=== PATIENT | female | born 1950 | race Caucasian/White ===

== ENCOUNTER 2018-09-16 07:00 | Day surgery (SDC) | payer BC, MEDICARE ==
[~2018-09-16] VITALS: Ht 165.1 cm; Wt 82.5 kg
[~2018-09-16 07:00] MED LIST: ALLEREST; ASPIRIN EC81 MG PO; BENADRYL25 MG PO; IBUPROFEN200 MG PO; LATANOPROST2.5 ML OPTH; LEVOTHYROXINE50 MCG PO; LISINOPRIL-HCT1 EAC2 PO; NORCO 7.5-3251 EACH PO; ULTRAM50 MG PO; ZITHROMAX250 MG PO
--- NOTE | 2018-09-16 10:26 | NUR ---
[id number]: FRAME MAKER PROVIDES ORDERS FOR LABETALOL, SEE EMAR. FREQUENT MANUAL BP TAKEN. PT UNABLE TO KEEP LEFT ARM STILL DUE TO THE PRESSURE OF BP CUFF CAUSING PAIN. PT GROANS WITH WITH EACH BP. PT BOLUSED 500 MLS LR PER FRAME MAKER. WILL CONTINUE TO MONITOR.
--- NOTE | 2018-09-16 14:31 | NUR ---
09/16/18 1431 Sheets,[place] 1423 PT ARRIVED TO PACU ON 6L VIA MASK WITH ORAL AIRWAY IN PLACE. RESP EVEN AND UNLABORED. 1429 PT MOVING ARMS, EYES REMAIN CLOSED AND PT UNABLE TO FOLLOW COMMANDS. ORAL AIRWAY REMAINS IN PLACE.
--- NOTE | 2018-09-16 15:57 | NUR ---
PT ARRIVES TO DS RM 3 FROM PACU DROWSY WITH EYES CLOSED. PT RESP EVEN AND UNLABORED ON RA. PULSE OXIMETER LEFT IN PLACE, PT REMINDED TO TAKE DEEP BREATHS TO KEEP O2 ABOVE 94%. PT FOLLOWS VERBAL COMMANDS WELL. PT DENIES PAIN OR NAUSEA. PT SPOUSE IN ON ARRIVAL. 1550: PT STATES SHE HAS TO VOID. BED MARTIN PROVIDED AND PT ABLE TO VOID QS. PT SPOUSE ASKS IF PT HAS ANY MEDICATIONS THAT NEED TO BE FILLED AT PHARMACY. SPOUSE PROVIDED SCRIPT AND EXITS PT ROOM TO FILL. SCD'S IN PLACE. CALL LIGHT WITHIN REACH.
--- NOTE | 2018-09-16 16:58 | NUR ---
PT SLEEPING ON ARRIVAL TO FOR ASSESSMENT. PT EASILY AROUSES TO VERBAL STIMULATION. PT WAKES UP AND STATES SHE FEELS THE URGE TO VOID. PT CHANGES POSITIONS SLOWLY AND SITS AT EDGE OF BED. PT DENIES ANY DIZZINESS OR NAUSEA WITH POSITION CHANGE AND STANDS UP. PT AMBULATES WITH RN ASSIST TO BATHROOM. PT STEADY OF FEET. PT ABLE TO VOID 200 MLS PINK URINE. PT CONT TO DENY ANY PAIN OR NAUSEA AT THIS TIME. 1700: PT BACK IN AND PROVIDED WATER AND PUDDING.
[2018-09-16] MEDS ORDERED: NORCO 5-325 TA1 EACH PO (16:59)
--- NOTE | 2018-09-16 17:36 | NUR ---
DC INSTRUCTIONS GIVEN AND PATIENT VERBALIZES UNDERSTANDING. PATIENT GETTING DRESSED.
--- NOTE | 2018-10-21 09:26 | OR ---
[facility] [address] [place], [place] [address] Signed DATE OF OPERATION: 09/16/2018 SURGEON: Nadine Arias MD PREOPERATIVE DIAGNOSES: Postmenopausal bleeding and endometrial mass and cervical stenosis. POSTOPERATIVE DIAGNOSES: Postmenopausal bleeding and endometrial mass, pending pathology. Cervical stenosis. PROCEDURE: Hysteroscopy, D and C, resection of endometrial mass. ANESTHESIA: General ET. ESTIMATED BLOOD LOSS: 25 mL. DRAINS: None. INDICATIONS AND FINDINGS: The patient is a 68-year-old female, 2, para 2, who has been having abnormal bleeding since February of this past year. She had an ultrasound done as well as an MRI, which revealed an endometrial mass. Endometrial biopsy in the office was not possible given her cervical stenosis. At the time of surgery, exam under anesthesia revealed stenotic cervix. She had a top-normal size uterus. No adnexal masses were appreciated. When the cavity was finally evaluated, it was found to be 9 cm in length. There were multiple polyps within the cavity. DESCRIPTION OF PROCEDURE: The patient was prepped and draped in the dorsal lithotomy position. A weighted speculum was placed. The anterior lip of the cervix was visualized and grasped with a single-tooth tenaculum. The cervix was very stenotic and dilation was begun with lacrimal probes. Following this, an Os Finder could be placed and eventually the cervix could be dilated to a #8 dilator. There was no obvious perforation during that time. Following this, the cavity was sounded to 9 cm. The MyoSure device was placed and the cavity evaluated. The cavity appeared to be mostly atrophic, but there were multiple polyps within the cavity as well. Because of the large polyps, the MyoSure LITE was Electronically Signed By: NADINE ARIAS MD 10/21/18 0926 PATIENT NAME: KIKE HEMPHILL OPERATIVE REPORT DATE OF : 54 REPORT #: [id number] PHYSICIAN: NADINE ARIAS MD PCP: ARON PARKER PAC REPORT IS CONFIDENTIAL AND NOT TO BE RELEASED WITHOUT AUTHORIZATION [facility] [address], [place] [address] Signed introduced and multiple polyps were resected using the MyoSure LITE. Following this, the MyoSure device was removed and polyp forceps were introduced and more polypoid tissue was obtained. Following this, the MyoSure device was replaced and the remaining polypoid fragments within the uterus were removed. The remainder of the cavity appeared atrophic. At this point, the procedure was terminated. The instruments were removed from the vagina. There was no evidence of ongoing bleeding from the cervix. The patient was then taken to the recovery room in good condition. Nadine Arias MD PJW/MODL /[id number] cc: OSCAR Pulido Copies: ~ Electronically Signed By: NADINE ARIAS MD 10/21/18 0926 PATIENT NAME: KIKE HEMPHILL OPERATIVE REPORT DATE OF : 54 REPORT #: [id number] PHYSICIAN: NADINE ARIAS MD PCP: ARON PARKER REPORT IS CONFIDENTIAL AND NOT TO BE RELEASED WITHOUT AUTHORIZATION
== END 2018-09-16 17:35 | disposition home or self-care (01) ==
LOC: DS 07:00
PROVIDERS: Obstetrics & Gynecology
PROC: 0UDB8ZZ Extraction of Endometrium, Via Natural or Artificial Opening Endoscopic (ICD-10-PCS; 2018-09-16)
PROC: 0UB98ZZ Excision of Uterus, Via Natural or Artificial Opening Endoscopic (ICD-10-PCS; principal; 2018-09-16 09:30)
DX: N84.0 Polyp of corpus uteri (principal); N88.2 Stricture and stenosis of cervix uteri; E66.9 Obesity, unspecified; E03.9 Hypothyroidism, unspecified; I10 Essential (primary) hypertension; Z88.2 Allergy status to sulfonamides; Z88.0 Allergy status to penicillin; Z88.1 Allergy status to other antibiotic agents; Z88.8 Allergy status to other drugs, medicaments and biological substances; Z79.82 Long term (current) use of aspirin; Z79.899 Other long term (current) drug therapy; M81.0 Age-related osteoporosis without current pathological fracture; R01.1 Cardiac murmur, unspecified; E78.00 Pure hypercholesterolemia, unspecified
CPT/HCPCS: 00952; J1100; J1885; J2250; J2405; J2704; J2765; J3010; J7120

== ENCOUNTER 2018-11-23 12:48 | Day surgery (SDC) | payer BC, MEDICARE ==
[~2018-11-23] VITALS: Ht 165.1 cm; Wt 82.1 kg
[~2018-11-23 12:48] MED LIST changes: +CLEOCIN HCL300 MG PO; +KEFLEX500 MG PO; +NORCO 5-325 TA1 EACH PO; +NORVASC5 MG PO
--- NOTE | 2018-11-23 15:36 | NUR ---
11/23/18 1536 Leena Arias 1529 PT TO PACU SLEEPY BUT AROUSABLE DENIES PAIN AND NAUSEA
--- NOTE | 2018-11-24 18:08 | OR ---
[facility] [address], [place] [address] Signed DATE OF OPERATION: 11/23/2018 SURGEON: Rose Mary Frank MD PREOPERATIVE DIAGNOSIS: Family history of colon cancer (older sister and two brothers). Last colonoscopy in 2001. POSTOPERATIVE DIAGNOSIS: Normal colon except for internal hemorrhoids. PROCEDURE: Total colonoscopy to cecum. ANESTHESIA: Intravenous sedation, fentanyl 150 mcg, and Versed 5 mg. INDICATION: This morbidly obese 68-year-old white woman is a patient of Jim Carrion and Dr. Nadine Arias. She underwent colonoscopy by me in 2001. She has family history of colon cancer in an older sister and two brothers. She is currently symptom free. She understands the risks of bleeding, infection, and perforation related to colonoscopy and wished to proceed. FINDINGS: The prep was good. Complete colonoscopy was undertaken of the cecum without question. There was no evidence of diverticulosis, polyps, colitis, cancer, or other abnormality. She did have internal hemorrhoidal changes on retroflexed view. DESCRIPTION OF PROCEDURE: The patient was brought to the endoscopy suite and placed in lateral decubitus position given intravenous sedation to the point of slurred speech and nystagmus. Digital rectal examination was normal. An Olympus video colonoscope was passed in the rectum and manipulated throughout the colon ultimately intubating the cecum itself. The ileocecal valve was normal. Scope was withdrawn from that point and examination throughout showed no sign of abnormality, specifically no polyps, diverticular formation, colitis, or cancer. Retroflex view did confirm some internal hemorrhoidal changes. The scope was removed and the patient was taken to the recovery room in good condition. Electronically Signed By: ROSE MARY FRANK MD 11/24/18 1808 PATIENT NAME: KIKE HEMPHILL OPERATIVE REPORT DATE OF : 54 REPORT #: [id number] PHYSICIAN: ROSE MARY FRANK MD PCP: ARON PARKER PAC REPORT IS CONFIDENTIAL AND NOT TO BE RELEASED WITHOUT AUTHORIZATION [facility] [address], [place] [address] Signed CONCLUDING DIAGNOSIS: Normal colon except for internal hemorrhoids. PLAN: Recommend repeat colonoscopy in 5 years based on family history. She will return to the ongoing care of Dr. Arias and OSCAR Morrell. MD ROSALBA Shea/MODL /[id number] cc: OSCAR Morrell MD Copies: NADINE ARIAS MD ~ Electronically Signed By: ROSE MARY FRANK MD 11/24/18 1808 PATIENT NAME: KIKE HEMPHILL OPERATIVE REPORT DATE OF : 54 REPORT #: [id number] PHYSICIAN: ROSE MARY FRANK MD PCP: ARON PARKER PAC REPORT IS CONFIDENTIAL AND NOT TO BE RELEASED WITHOUT AUTHORIZATION
== END 2018-11-23 16:39 | disposition home or self-care (01) ==
LOC: OPS 12:48 → DS 14:00 → OPS 14:00
PROVIDERS: Surgery
PROC: 0DJD8ZZ Inspection of Lower Intestinal Tract, Via Natural or Artificial Opening Endoscopic (ICD-10-PCS; principal; 2018-11-23 14:00)
DX: Z12.11 Encounter for screening for malignant neoplasm of colon (principal); K64.8 Other hemorrhoids; I10 Essential (primary) hypertension; E66.01 Morbid (severe) obesity due to excess calories; Z88.0 Allergy status to penicillin; Z88.2 Allergy status to sulfonamides; Z88.8 Allergy status to other drugs, medicaments and biological substances; Z88.1 Allergy status to other antibiotic agents; Z79.899 Other long term (current) drug therapy; Z80.0 Family history of malignant neoplasm of digestive organs
CPT/HCPCS: J2250; J3010; J7120

== ENCOUNTER 2023-12-15 12:49 | Day surgery (SDC) | payer BC, MEDICARE ==
[~2023-12-15] VITALS: Ht 165.1 cm; Wt 82.3 kg
[~2023-12-15 12:49] MED LIST changes: +IBLOOD GLUCOSE TEST STRIP 1 EA TEST VI PRN; +LACTATED RINGER'S 1,000 ML IV SCH; +LIDOCAINE HCL 1% 5 ML SDV INJ ONE; +MIDAZOLAM HCL 5 MG/5 ML VIAL IV PRN; +fentaNYL citrate 100 MCG/2 ML VIAL IV PRN
[2023-12-15 13:06] VITALS: BP 169/58
[2023-12-15] MEDS ORDERED: ALENDRONATE SOD70 MG PO (13:18)
[2023-12-15] MEDS ORDERED: fentaNYL citrate 100 MCG/2 ML VIAL ONE (14:04)
[2023-12-15] MEDS ORDERED: MIDAZOLAM HCL 5 MG/5 ML VIAL ONE (14:05)
--- NOTE | 2023-12-15 14:59 | NUR ---
12/15/23 145 Leena Arias 0327 PT TO PACU SLEEPY BUT AROUSABLE SHE DENIES PAIN AND NAUSEA.
[2023-12-15 15:31] VITALS: BP 140/67
--- NOTE | 2023-12-16 08:37 | OR ---
[facility] [address], [place] [address] Signed DATE OF OPERATION: 12/15/2023 SURGEON: Rose Mary Frank MD PREOPERATIVE DIAGNOSIS: Family history of colon cancer (two brothers, one sister), asymptomatic. POSTOPERATIVE DIAGNOSIS: Normal colon to cecum. PROCEDURE: Total colonoscopy to cecum. ANESTHESIA: Intravenous sedation; fentanyl 100 mcg and Versed 5 mg. INDICATION: This 73-year-old white woman is a patient of OSCAR Pulido. She is known to me from the past. She has a family history of colon cancer in a sister and two brothers. She currently has no symptoms of bleeding, diarrhea or constipation. She is admitted for a colonoscopy at this time at a five-year interval per current guidelines. She understands the risk of bleeding, infection, and perforation related to colonoscopy and wished to proceed. FINDINGS: The prep was excellent. Complete colonoscopy was undertaken. Mucosa behind the ileocecal valve was elevated with a biopsy forceps to more fully inspected as the cecum could not be fully intubated itself. There was no evidence of abnormality there. The remaining colon was entirely normal as well. DESCRIPTION OF PROCEDURE: The patient was brought to the endoscopy suite and placed in lateral decubitus position, given intravenous sedation to the point of slurred speech and nystagmus. Digital rectal examination was normal. An Olympus video colonoscope was passed in the rectum and manipulated throughout the colon ultimately intubating the cecum. Complete and full intubation of the cecum usually accomplished was not possible despite various maneuvers to do so. On that basis, a biopsy forceps was used to elevate the mucosa behind the ileocecal valve itself showing no evidence of polyps or other abnormality. The scope was then withdrawn and Electronically Signed By: ROSE MARY FRANK MD 12/16/23 0837 PATIENT NAME: KIKE HEMPHILL OPERATIVE REPORT DATE OF : 54 REPORT #: [id number] PHYSICIAN: ROSE MARY FRANK MD PCP: ARON PARKER PAC REPORT IS CONFIDENTIAL AND NOT TO BE RELEASED WITHOUT AUTHORIZATION [facility] [address], [place] [address] Signed examination throughout showed no sign of abnormality, specifically no polyps, diverticular formation, colitis, or cancer. Retroflexed view was normal as well. The scope was removed. The patient was taken to the recovery room in good condition. CONCLUDING DIAGNOSIS: Normal colon to cecum. PLAN: Recommend repeat colonoscopy in 5 years based on her history sooner if symptoms should develop. She will return to the ongoing care of Aron Parker. MD ROSALBA Shea/ALICIA /[id number] cc: Aron Parker PA-C Copies: ~ Electronically Signed By: ROSE MARY FRANK MD 12/16/23 0837 PATIENT NAME: KIKE HEMPHILL OPERATIVE REPORT DATE OF : 54 REPORT #: [id number] PHYSICIAN: ROSE MARY FRANK MD PCP: ARON PARKER PAC REPORT IS CONFIDENTIAL AND NOT TO BE RELEASED WITHOUT AUTHORIZATION
== END 2023-12-15 15:40 | disposition home or self-care (01) ==
LOC: DS 12:49 → OPS 12:49 → DS 14:00 → OPS 15:40
PROVIDERS: ATTEND Surgery
PROC: 0DBC8ZX Excision of Ileocecal Valve, Via Natural or Artificial Opening Endoscopic, Diagnostic (ICD-10-PCS; principal; 2023-12-15 14:00)
DX: Z12.11 Encounter for screening for malignant neoplasm of colon (principal); E03.9 Hypothyroidism, unspecified; I10 Essential (primary) hypertension; Z80.0 Family history of malignant neoplasm of digestive organs; Z88.0 Allergy status to penicillin; Z88.2 Allergy status to sulfonamides; Z88.8 Allergy status to other drugs, medicaments and biological substances; Z79.899 Other long term (current) drug therapy
CPT/HCPCS: 99153; G0500; J2250; J3010; J7121

== ENCOUNTER 2025-01-10 05:45 | Day surgery (SDC) | payer MEDICARE, OTHER ==
[2025-01-04 13:26] VITALS: BP 154/76
[~2025-01-10] VITALS: Ht 165.1 cm; Wt 86.8 kg
[~2025-01-10 05:45] MED LIST changes: +ALENDRONATE SOD70 MG PO; +CELEBREX100 MG PO; +GABAPENTIN300 MG PO; -IBLOOD GLUCOSE TEST STRIP 1 EA TEST VI PRN; +LASIX20 MG PO; -LIDOCAINE HCL 1% 5 ML SDV INJ ONE; -MIDAZOLAM HCL 5 MG/5 ML VIAL IV PRN; +NORVASC10 MG PO; -NORVASC5 MG PO; -fentaNYL citrate 100 MCG/2 ML VIAL IV PRN
[2025-01-10 06:04] VITALS: BP 146/63
[2025-01-10] MEDS ORDERED: IBLOOD GLUCOSE TEST STRIP 1 EA TEST VI PRN (07:00)
[2025-01-10] MEDS ORDERED: LIDOCAINE HCL 1% 5 ML SDV INJ ONE (07:00)
[2025-01-10] MEDS ORDERED: fentaNYL citrate 100 MCG/2 ML VIAL ONE (07:32)
[2025-01-10] MEDS ORDERED: DEXAMETHASONE SOD PHOS 4 MG/ML VIAL ONE (07:33)
[2025-01-10] MEDS ORDERED: propofoL 200 MG/20 ML VIAL ONE (07:33)
[2025-01-10] MEDS ORDERED: ondansetron HCL 4 MG/2 ML VIAL ONE (07:33)
[2025-01-10] MEDS ORDERED: ACETAMINOPHEN 1,000 MG/100 ML VIAL ONE (07:33)
[2025-01-10] MEDS ORDERED: KETAMINE in NS 50 MG/5 ML SYR ONE (07:49)
[2025-01-10 08:31] VITALS: BP 128/59
--- NOTE | 2025-01-11 07:59 | OR ---
[facility] [address] [place] [address] [place], [place] [address] Signed DATE OF OPERATION: 01/10/2025 SURGEON: Fran Qiuspe MD PREOPERATIVE DIAGNOSES: 1. Cervical polyp. 2. Intolerant of exam in clinic. POSTOPERATIVE DIAGNOSES: 1. Cervical polyp. 2. Intolerant of exam in clinic. PROCEDURE: Cervical polypectomy. FINDINGS: 1 x 1 cm cervical polyp at the external os. ANESTHESIA: MAC. EBL: Minimal. IV FLUIDS: 450 mL of crystalloid. URINE OUTPUT: Not measured. DRAINS: None. SPECIMEN: Cervical polyp. COUNTS: Correct x2. COMPLICATIONS: Electronically Signed By: FRAN QUISPE MD 01/11/25 0759 PATIENT NAME: KIKE HEMPHILL OPERATIVE REPORT DATE OF : 54 REPORT #: [id number] PHYSICIAN: FRAN QUISPE MD PCP: ARON PARKER PAC REPORT IS CONFIDENTIAL AND NOT TO BE RELEASED WITHOUT AUTHORIZATION [facility] [address] [place] [address] [place], [place] [address] Signed None apparent. TECHNIQUE IN DETAIL: With informed consent, the patient was taken to the operating room where she was given IV sedation and monitored anesthesia care. Lower extremities were placed in SCD pneumatic compression devices and then placed in low lithotomy position. A small speculum was placed and the cervix was visualized. Single-toothed tenaculum was placed on the anterior lip of the cervix in order to manipulate the cervix and gain access to the external os. Using curved Desire clamp, the polyp was grasped and enucleated using a method. There was some remnant that was grasped after the majority had been removed. There was minimal bleeding. We did do some silver nitrate to chemically cauterize the base of the polyp. The tenaculum was then removed and the tenaculum sites were noted to be hemostatic. Speculum was then removed from the vagina. DISPOSITION: The patient was taken to the recovery room in stable condition. Fran Quispe MD BB/MODL /[id number] Copies: ~ Electronically Signed By: FRAN QUISPE MD 01/11/25 0759 PATIENT NAME: KIKE HEMPHILL OPERATIVE REPORT DATE OF : 54 REPORT #: [id number] PHYSICIAN: FRAN QUISPE MD PCP: ARON PARKER PAC REPORT IS CONFIDENTIAL AND NOT TO BE RELEASED WITHOUT AUTHORIZATION
--- NOTE | 2025-01-13 16:58 | PATH ---
[facility] [address] [place], [place] [address] Signed SPECIMEN(S): A CERVICAL POLYP SPECIMEN SOURCE: A. CERVICAL POLYP CLINICAL HISTORY: Cervical polyp FINAL PATHOLOGIC DIAGNOSIS: Cervical polyp, biopsy: - Detached strips of squamous ectocervical and glandular endocervical mucosa admixed with large quantity of mucus. - No definite polypoid structure identified. - p16 is focally positive by immunohistochemistry; however, there is no definite dysplasia identified. - Negative for malignancy. COMMENT: As a part of [facility] program, this case received peer review by a second pathologist, with agreement for the above diagnosis. SDL MICROSCOPIC EXAMINATION: Histologic sections of all submitted blocks are examined by light microscopy. These findings, together with the gross examination, support the pathologic diagnosis. GROSS DESCRIPTION: The specimen, labeled and designated "Selina, cervical polyp," is received in formalin and consists of multiple fragments of pink-alexandra to red-brown soft and mucoid tissue (2.7 x 2.0 x 0.4 cm in aggregate). The specimen is submitted entirely in cassette (A1). VB (under the direct supervision of a pathologist) The Gross Description was prepared using a voice recognition system. The report was reviewed for accuracy; however, sound-alike word errors, addition and/or deletions may occur. If there are any questions about this report, please contact Client Services. ADDITIONAL NOTES: Immunohistochemical and/or in situ hybridization studies if performed in this case included appropriate positive controls that reacted as expected. This PATIENT NAME: KIKE HEMPHILL PATHOLOGY DATE OF : 54 REPORT #: [id number] PHYSICIAN: ABHINAV RODRIGUEZ PCP: ARON PARKER PAC REPORT IS CONFIDENTIAL AND NOT TO BE RELEASED WITHOUT AUTHORIZATION [facility] [address] [place], [place] [address], [place] [address] Signed test was developed and its performance characteristics determined by [facility]. It has not been cleared or approved by the U.S. Food and Drug Administration. The FDA has determined that such clearance or approval is not necessary. This test is used for clinical purposes. It should not be regarded as investigational or for research. [facility] is certified under the Clinical Laboratory Improvement Amendments of 1988 (CLIA) as qualified to perform high complexity clinical laboratory testing. PERFORMING LABORATORY: Technical component was performed by [facility], [address] [place] [id number] (CLIA# [id number]). Professional interpretation was performed by [facility], [address] [place] [id number] (CLIA#: [id number]). Diagnostician: Nathalie Blackwood MD Pathologist Electronically Signed 01/13/2025 Copies: ~ PATIENT NAME: KIKE HEMPHILL PATHOLOGY DATE OF : 54 REPORT #: [id number] PHYSICIAN: ABHINAV RODRIGUEZ PCP: ARON PARKER PAC REPORT IS CONFIDENTIAL AND NOT TO BE RELEASED WITHOUT AUTHORIZATION
== END 2025-01-10 08:42 | disposition home or self-care (01) ==
LOC: DS 05:45
PROVIDERS: ATTEND Obstetrics & Gynecology
PROC: 0UBC7ZX Excision of Cervix, Via Natural or Artificial Opening, Diagnostic (ICD-10-PCS; principal; 2025-01-10 07:30)
DX: N84.1 Polyp of cervix uteri (principal); I10 Essential (primary) hypertension; E03.9 Hypothyroidism, unspecified; Z79.890 Hormone replacement therapy; Z79.899 Other long term (current) drug therapy; Z88.0 Allergy status to penicillin; Z88.5 Allergy status to narcotic agent; Z88.2 Allergy status to sulfonamides; Z88.1 Allergy status to other antibiotic agents
CPT/HCPCS: 00940; 88305; 88342; J0131; J1100; J2405; J2704; J3010; J3490; J7121